=== PATIENT | male | born 1945 | race Caucasian/White ===

== ENCOUNTER 2018-07-08 10:02 | Outpatient (RCR) | payer MEDICARE, SELFPAY ==
--- NOTE | 2018-07-08 11:21 | IE_ITS ---
Date: 07/08/18 Referring: JINNY Lilly Primary: Yuli Gallardo NP M.D. Diagnosis: s/p CVA P.T. Diagnosis: resolved symptoms of weakness s/p CVA SUBJECTIVE: History of Present Illness: Carmelo presents to the clinic for evaluation after an acute care stay, where he states he was diagnosed with either a CVA or a TIA. He states that he was at work last week when he became unable to talk or walk. He immediately contacted his boss, who recommended he go to the ER. Carmelo was then admitted to [facility] for acute management and further work up. He states that he continued to have difficulty walking in the hospital, and he attributes much of that to the amount of time he spent in bed. He states that he went home with a walker after 3 days in the hospital, and once home was able to gradually wean away from use of the WW. He is now walking independently, and states that his feeling of weakness has resolved. Pain Ratin/10 Prior Level of Function: Active and independent. 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 States that he's on his feet all day. Current Level of Function: Continues to be out of work since his hospitalization. He is hopeful he can return this week after following up with his PCP tomorrow. He denies any difficulty walking or caring for himself. Previous Treatment: Acute care stay at [facility] 06/28-07/01/18 Comorbidities: recent TIA with h/o CVA; hyperlipidemia; bipolar disorder Falls in the last year: __x__ No ____Yes - How many? ____ - (if over 2, balance SM needs to be completed) Reported hospitalizations in the last year - ____ No __x__ Yes - Dates of admission/reason: as above Medications: reviewed from EMR Quality of Life: __x__ Excellent ____ Good ____ Fair ____ Poor OBJECTIVE: Posture: Patient has forward flexed trunk posturing. He has marked genu valgus right >left, with significant valgus deformity of the right knee. He has marked deformity of the foot and ankle bilat, with removal of 2nd digit of the right foot. He has a wound over the left navicular, as well as skin breakdown noted on the medial portion of the 2nd digit of the left foot. Gait: (+) antalgia, with right hip IR during stance phase of the RLE. He has bilat toeing out and increasing trunk flexion with ambulation. ROM: Shoulder flexion allows 150 degrees bilat. Otherwise grossly WNL for the UEs. Strength: Shoulder flexion 3+/5 right, 4/5 left; biceps 4/5 bilat; shoulder IR 4/5 bilat; ER 4/5 bilat. Philosophy Lecturer by dynomometer shows right side: 70#, 65#, 60#; left side 75#, 68#, 58#. Hip flexion is 5/5 bilat; quads 5/5 bilat with significant crepitus on the right ; HS 4/5 bilat. Neuro: dermatomes and myotomes WNL. DTRs were not assessed Treatment: Today's session consisted of evaluation, with long discussion regarding appropriate treatment planning and goals. Patient is comfortable transitioning back to work and has no complaints about strength or mobility, both of which he feels are back to baseline. IE: [id number] Direct treatment time: 35 minutes Total treatment time: 35 mintues ASSESSMENT: Patient is a 73-year-old male, referred for PT services with the diagnosis of s/ p CVA. Patient presents with clinical signs and symptoms consistent with resolving symptoms of TIA. On evaluation today, patient demonstrates baseline biomechanical deficits, for which he sees Dr. Herrera regularly. He is also demonstrating some mild strength deficits, although mobility appears to be at baseline, with patient denying any mobility concerns at this point. Patient is anxious to resume work duties, which is safe for him to do, provided he's cleared by his PCP. No further PT intervention is warranted at this time. Patient is assessed as: __x__ Low 70989 ____ Moderate 80003 ____ High 78709 complexity, based on the following: History: (list): 73 year old male with resolving mobility issues related to recent TIA. x See comorbidities and social history. Examination: (list): Denies functional limitations Presentation: x Stable . Evolving Unstable Decision-Making: x Low complexity [] Moderate complexity [] High complexity __x__ Patient does not require skilled PT intervention. G-Codes (fill in modifier after appropriate code): Patient's primary functional limitation is in the category of: __x__ Mobility - walking and moving around : [id number] Projected goal: __x__ Mobility - walking and moving around: [id number] Discharge status: --x-- Mobility: walking and moving around: [id number] PLAN: No PT intervention required at this time as patient is at baseline level of function. Thank you for this referral. Please do not hesitate to contact me with any questions or concerns regarding this patient's plan of care.
== END 2018-07-19 23:59 | disposition home or self-care (01) ==
LOC: PT 10:02
PROVIDERS: PCP Nurse Practitioner; Referring Provider Nurse Practitioner Primary Care; Visit Provider Nurse Practitioner Primary Care
DX: I69.393 Ataxia following cerebral infarction (principal)
CPT/HCPCS: 97161; G8978

== ENCOUNTER → 2018-07-09 13:29 | Outpatient (CLI) | payer MEDICARE, SELFPAY ==
--- NOTE | 2018-07-12 13:43 | ZIOP_ITS ---
DATE OF DICTATION: July 12, 2018 INDICATION: TIA MONITORING PERIOD: Four days and five hours. Predominant underlying rhythm is sinus rhythm with first-degree AV block. Average heart rate is 83 bpm, maximum heart rate 161 bpm, minimum heart rate 43 bpm. One run of SVT lasting eleven beats with a maximum heart rate of 120 bpm. Three episodes of second-degree AV block Mobitz Type 1 occurred nocturnally. No significant advanced heart block otherwise. No significant pauses. No non-sustained VT. Rare isolated atrial ectopy. Rare isolated ventricular ectopy. No diary entries. Two patient-triggered events correspond to sinus rhythm. Overall sinus rhythm with no significant arrhythmias.
--- NOTE | 2018-08-02 10:13 | ZIOP_ITS ---
ZIO PATCH EVENT RECORDER STUDY DATE OF ANALYSIS/DICTATION August 01, 2018 DATE OF ENROLLMENT July 09, 2018 until July 18, 2018 INDICATION Transient cerebral ischemic attack. PRESCRIBING PHYSICIAN Yuli Gallardo NP FINDINGS 1. Baseline sinus rhythm, heart rate spectrum 42-145 beats per minute, average 81 beats per minute. 2. Rare PACs, less than 1%, 3 SVT runs, fastest 4 beats at 184 beats per minute , longest 10.7 seconds with an average rate of 133 beats per minute. No atrial fibrillation. 3. Rare PVCs, less than 1%, occasional couplets, occasional ventricular bigeminy and trigeminy. No ventricular tachycardia. 4. No significant pauses. 5. Two triggered events both with sinus rhythm, 99 and 110 beats per minute, single PVCs. 6. No symptoms recorded. Mica Blackwell M.D. ROBERT/santy T - 08/02/2018
== END ==
PROVIDERS: PCP Nurse Practitioner; Visit Provider Nurse Practitioner
DX: G45.9 Transient cerebral ischemic attack, unspecified (principal); I44.0 Atrioventricular block, first degree; I44.1 Atrioventricular block, second degree; I47.1 Supraventricular tachycardia
CPT/HCPCS: 0296T; 93225

== ENCOUNTER → 2018-07-12 09:00 | Outpatient (CLI) | payer MEDICARE, SELFPAY | PROVIDERS: PCP Nurse Practitioner; Visit Provider Internal Medicine Cardiovascular Disease | DX: G45.9 Transient cerebral ischemic attack, unspecified (principal); I11.0 Hypertensive heart disease with heart failure; I44.1 Atrioventricular block, second degree; I47.1 Supraventricular tachycardia | CPT/HCPCS: 0298T ==

== ENCOUNTER 2018-08-01 18:18 | Outpatient (CLI) | payer MEDICARE, SELFPAY | END 2018-08-01 18:38 | PROVIDERS: PCP Nurse Practitioner; Visit Provider Internal Medicine Cardiovascular Disease | DX: G45.9 Transient cerebral ischemic attack, unspecified (principal); I44.0 Atrioventricular block, first degree; I44.1 Atrioventricular block, second degree; I47.1 Supraventricular tachycardia | CPT/HCPCS: 0298T ==

== ENCOUNTER → 2018-08-13 10:10 | Outpatient (BNVA) | payer MEDICARE, SELFPAY | PROVIDERS: Visit Provider Psychiatry & Neurology Neurology | DX: I44.1 Atrioventricular block, second degree (principal); G21.11 Neuroleptic induced parkinsonism; T43.595A Adverse effect of other antipsychotics and neuroleptics, initial encounter | CPT/HCPCS: 99205; 99215 ==

== ENCOUNTER 2018-09-26 19:33 | Outpatient (REF) | payer MEDICARE, SELFPAY | END 2018-09-26 19:53 | LOC: LBN 19:33 | PROVIDERS: PCP Nurse Practitioner; Visit Provider Nurse Practitioner | DX: M54.9 Dorsalgia, unspecified (principal); R82.90 Unspecified abnormal findings in urine | CPT/HCPCS: 87077; 87086 ==

== ENCOUNTER 2018-09-27 10:49 | Emergency (ER) | payer MEDICARE, SELFPAY ==
[2018-09-27] VITALS (34 sets, daily range): BP systolic 106–155; BP diastolic 62–81; PULSE 87–123; RESP 15–57; TEMP 38.8–39.1; O2SAT 96–100
--- NOTE | 2018-09-27 10:43 | W.ED.GENAD ---
Discharge Plan Disposition Patient Disposition: HOME Condition: Stable Discharge Details Chief Complaint: AMS/LOC Clinical Impression: Community acquired pneumonia Reason For Visit: KANWAL Primary Care Provider: Yuli Gallardo ED Provider: Ambrocio Medina Home Meds and New Rx's Prescriptions: No Action aspirin 81 mg tablet,chewable 81 mg PO DAILY Qty: 90 RF: 3 methylprednisolone [Medrol (Charles)] 4 mg tablets,dose pack See Label Instructions .Route .COMPLEX Qty: 21 RF: 0 olanzapine 10 MG tablet 10 mg PO DAILY RF: 0 acetaminophen [Acetaminophen Extra Strength] 500 MG tablet 500 mg PO DAILY PRNRF: 0 PEPTO-BISMOL 262 MG/15 ML ORAL.SUSP 2 tsp PO PRN PRNRF: 0 lithium carbonate 300 MG capsule 900 mg PO DAILY RF: 0 atorvastatin [Lipitor] 40 MG tablet 40 mg PO QPM Qty: 90 RF: 3 trazodone 100 MG tablet 100 mg PO HS Qty: 90 RF: 3 cane 1 EACH device 1 ea Miscellaneous DAILY Qty: 1 RF: 0 Medical Decision Making 72 yo male comes in with altered mental status. Per chart review he is caox4 normally and saw his pcp yesterday for back pain and was felt to be due to muscle pain so put on prednisone. He hasn't been seen since yesterday and didn't show up for work today and so his boss called pd for a wellfare check and he was found in bed and altered so ems brought him here. Is noted to be febrile here, pt can't provide any meaninful history, only says okay to all questions. IS moving all extremities without problems. Has right sided abdominal tenderness over the oblique area. Will obtain head ct given his ams, chest xray to eval for pna and given his abd pain ct to eval for cholecystitis among other pathology and UA to eval for uti pt remains stable, labs shows wbc of 17 otherise unremarkable. Pt's xray on my read shows left sided lower lobe infiltrate. Given his ams and fevers will admit for IV abx, our hospital is currently full so patient is being transferred to Dr. Barton at [facility]. Pt and sister updated Differential Diagnosis pna, pancreatitis, uti, HPI General Mode of arrival: EMS. Date/Time Provider Initiated Documentation: 09/27/18 13:15. Limitations to Documentation: altered mental status. Information obtained by: patient and EMS. History of Present Illness 72 year old M presents to the emergency department with the chief complaint of altered mental status, described as moderate, Patient started experiencing this unknown and it has been constant. Patient notes fever/chills. Patient did receive the following treatments prior to arrival, none Related Data Home Medications Medication Instructions Recorded Confirmed Pepto-Bismol 2 tsp PO PRN PRN 03/20/13 09/27/18 acetaminophen [Acetaminophen Extra 500 mg PO DAILY PRN 03/20/13 09/27/18 Strength] olanzapine 10 mg PO DAILY tab-cap 03/20/13 09/27/18 lithium carbonate 900 mg PO DAILY cap 08/05/15 09/27/18 atorvastatin [Lipitor] 40 mg PO QPM #90 tab 07/09/18 09/27/18 cane #1 ea 07/09/18 09/26/18 trazodone 100 mg PO HS #90 tab-cap 18 09/27/18 aspirin 81 mg chewable tablet 81 mg PO DAILY #90 tab 08/15/18 09/27/18 methylprednisolone 4 mg tablets in See Label Instructions .ROUTE 09/26/18 09/27/18 a dose pack .COMPLEX #21 dose pk Previous Rx's Medication Instructions Recorded atorvastatin [Lipitor] 40 mg PO QPM #90 tab 07/09/18 cane #1 ea 07/09/18 trazodone 100 mg PO HS #90 tab-cap 07/09/18 aspirin 81 mg chewable tablet 81 mg PO DAILY #90 tab 08/15/18 methylprednisolone 4 mg tablets in See Label Instructions .ROUTE 09/26/18 a dose pack .COMPLEX #21 dose pk Allergies Allergy/AdvReac Type Severity Reaction Status Date / Time No Known Allergies Allergy Verified 09/26/18 10:40 General Stated Complaint: AMS/LOC RYLAN: 2 Review of Systems Review of Systems Unobtainable due to mental status [facility] Family History Mother No problems noted. Father No problems noted. 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) Impaired fasting glucose (Chronic 04/16/13) Erectile dysfunction (Chronic 02/21/18) BPH w/o urinary obs/LUTS (Chronic 03/12/12) Bipolar disorder (Chronic) Hyperlipidemia (Chronic) Bipolar disorder (Resolved) DVT prophylaxis (Resolved) Dehydration (Resolved) HLD (hyperlipidemia) (Resolved) Social History household members: family number of children: 1 current occupational status: employed current occupation: [employer] Smoking/Tobacco Use Status: Former Tobacco Use alcohol intake: never substance use type: does not use seatbelt use: always water heater temp set < 120 deg: Yes working smoke detector in home: Yes fire extinguisher in home: Yes additional social history: His son lives in [place]. 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 He lives alone. Sibs help with care. He continues to drive. Surgical History S/P right cataract extraction (Acute) S/P wrist surgery (Acute) Hx of appendectomy (Chronic) Colonoscopy - IV Sedation (~2012) R popliteal artery stentgrafting/angioplasty (03/16/17) Repair of inguinal hernia (09/16/14) Exam Const General: no acute distress Orientation: alert [facility] Head: normal to inspection Ears: external ears normal General nose exam: external nose normal Mouth: moist mucous membranes Eyes General: appearance normal, both eyes and all related structures Neck Neck: normal visual inspection Resp Effort & Inspection: normal respiratory effort and able to speak in complete sentences Cardio Rate: regular rate Neuro General: alert Extrem General: normal to inspection Course Vital Signs Temperature 38.8 C H 09/27/18 10:17 Pulse 100 H 09/27/18 10:17 Respiratory Rate 24 09/27/18 10:17 Blood Pressure 133/65 09/27/18 10:17 Pulse Oximetry 100 09/27/18 10:17 Temperature 38.8 C H 09/27/18 10:17 Temperature Source Skin 09/27/18 10:17 Pulse 100 H 09/27/18 10:17 Respiratory Rate 24 09/27/18 10:17 Blood Pressure 133/65 09/27/18 10:17 Pulse Oximetry 100 09/27/18 10:17 Oxygen Delivery Method Room Air 09/27/18 10:17 Oxygen Flow Rate 0 09/27/18 10:17 Lab/Test Results Lab/Test Results: 09/27/18 10:25 Blood Blood Culture - Pending 09/27/18 10:25 Blood Blood Culture - Pending
--- NOTE | 2018-09-27 10:44 | DI.RAD_ITS ---
SYMPTOM/DIAGNOSIS: FEVER AP AND LATERAL CHEST: Comparison is made with 06/28/18. There is a poor inspiration. Cardiac silhouette is at the upper limits of normal. Pulmonary vasculature is within normal limits. There is atelectasis seen in the left lung base. No focal consolidating infiltrates, effusions or pneumothoraces are identified. Degenerative changes are seen in the spine. IMPRESSION: No acute pulmonary process.
[2018-09-27] MEDS: Normal Saline 1,000 ML 1000 ML IV (10:49)
[2018-09-27 11:01] LABS: Abs Immature Grans 0.07 k/cumm (0.0-0.09); Absolute Lymphocyte Count 0.15 k/cumm (1.2-3.4); Absolute Neutrophil Count 15.08 k/cumm (1.2-6.7); Basophils % 0.1; HCT 36.4 % (40.0-50.0); HGB 12.1 g/dL (13.5-17.5); Immature Grans % 0.4; Lymphocytes % 0.9; Mean Corp. HGB Concentration 33.2 g/dL (32.0-36.0); Mean Corpuscular Hemoglobin 33.2 pg (27.0-33.0); Mean Corpuscular Volume 99.7 fL (80-95); Mean Platelet Volume 10.4 fL (8.0-11.0); Monocytes % 7.9; Neutrophils % 90.7; Platelet Count 145 x1000/uL (130-400); RBC 3.65 m/cumm (4.50-6.00); RBC Distribution Width 13.7 % (11.8-14.1); White Blood Cell Count 16.63 k/cumm (4.4-10.8)
[2018-09-27 11:02] LABS: Absolute Basophil Count 0.02 k/cumm (0.0-0.2); Absolute Monocyte Count 1.31 k/cumm (0.11-0.7); Lactate-non-spesis 1.1 mmol/L (0.6-1.4)
[2018-09-27 11:09] LABS: Ammonia 12 umol/L (11-32)
[2018-09-27 11:12] LABS: PTT Activated 25.3 sec (21.0-31.4); Prothrombin Time 9.6 sec (9.3-10.8)
[2018-09-27 11:14] LABS: Bilirubin Negative (Negative); Blood Trace-lysed (Negative); Clarity Clear; Glucose Negative (Negative); Ketones Negative (Negative); Leukocyte Esterase Negative (Negative); Nitrite Negative (Negative); Specific Gravity 1.015 (1.005-1.025); Urobilinogen 0.2 EU/dL (Up TO 0.2); pH 5.5 (5-8)
[2018-09-27 11:22] LABS: ALT 17 U/L (12-78); AST 11 U/L (15-37); Albumin 3.3 g/dL (3.4-5.0); Alkaline Phosphatase 75 U/L (46-116); Anion Gap 11.3 mmol/L (3-11); BUN 28 mg/dL (7-18); Bilirubin, Direct 0.13 mg/dL (0.00-0.20); Bilirubin, Total 0.5 mg/dL (0.2-1.0); CO2 23.7 mmol/L (21.0-32.0); CREATININE 1.21 mg/dL (0.70-1.30); Calcium 9.1 mg/dL (8.5-10.1); Chloride 102 mmol/L (98-107); Estimated GFR 59.12 (mL/min/1.73m2); Glucose 159 mg/dL (70-100); Lipase 49 U/L (73-393); Potassium 4.6 mmol/L (3.5-5.1); Sodium 137 mmol/L (136-145); TSH (W/Ref FT4) 0.22 uIU/mL (0.358-3.74); Total Protein 7.9 g/dL (6.4-8.2)
[2018-09-27 11:25] LABS: Epithelial Cells Negative HPF (Negative); WBC 0-2 HPF (0-5)
[2018-09-27 11:26] LABS: *AMPHETAMINES SCREEN URINE Negative (Negative); *BARBITURATES SCREEN URINE Negative (Negative); *BENZODIAZEPINES SCREEN URINE Negative (Negative); Bacteria Negative HPF (Negative); C & S Indicated? No; Cannabinoids THC Negative (Negative); Casts 0-2 Coarse Granular LPF (Negative); Cocaine Screen,Urine Negative (Negative); Crystals Negative HPF (Negative); METHADONE URINE SCREEN Negative (Negative); Mucus Moderate (Negative); OPIATES URINE SCREEN Negative (Negative)
--- NOTE | 2018-09-27 11:31 | NUR.NOTE ---
In addition to assessment, pupils are PERRLA, pt. does follow commands. Awaiting CT and xray.
[2018-09-27 11:37] LABS: Tricyclic Antidepressants Negative (Negative)
[2018-09-27 11:39] LABS: Salicylate < 2.8 mg/dL (2.8-20.0)
[2018-09-27 11:42] LABS: Acetaminophen < 2 ug/mL (10-30)
[2018-09-27 11:44] LABS: ETHANOL BLOOD < 3.0 mg/dL (<3); FREE T4 1.09 ng/dL (0.76-1.46)
--- NOTE | 2018-09-27 12:08 | DI.CT_ITS ---
SYMPTOM/DIAGNOSIS: ALTERED MENTAL STATUS NONCONTRAST HEAD CT: Comparison is made with 06/28/18. There is cerebral atrophy and small vessel ischemic disease. No acute infarct, hemorrhage, midline shift or mass effect is identified. The visualized paranasal sinuses are clear. Mastoid air cells are well pneumatized. Calvarium is intact. IMPRESSION: No acute intracranial process. The findings were discussed with the ER on the date of the examination. ABDOMEN AND PELVIC CT: CT scan of the abdomen and pelvis was performed according to protocol. There is patient motion artifact. There are areas of atelectasis seen in the lung bases. The liver is normal in size. No hepatic mass is seen. On (series 5, image 29), there does appear to be a small stone in the gallbladder. No biliary ductal dilatation is present. The pancreas, spleen and adrenal glands are unremarkable. There are bilateral renal cysts, the largest is seen in the left kidney and measures 7.7 cm. in diameter. No solid renal mass or obstruction is seen. The urinary bladder is intact. The reproductive organs are unremarkable. The abdominal aorta is of normal caliber. No significant abdominal or pelvic adenopathy, ascites or pneumoperitoneum is seen. The bowel shows no evidence of obstruction or inflammation. No findings to suggest an acute appendicitis are present. Degenerative changes are present throughout the spine. Central spinal canal stenosis is seen at L 3-4 and L 4-5 and L 5-S1. IMPRESSION: 1. No evidence of an acute abdomen. 2. Possible gallstone. No biliary ductal dilatation. 3. Renal cysts. 4. Degenerative changes in the lumbar spine.
[2018-09-27] MEDS: Omnipaque 350 MG/ML 100 ML BTL IJ (12:32)
--- NOTE | 2018-09-27 13:40 | NUR.NOTE ---
Pt. continues to be confused, cleansed of incontinence. abx running as ordered. supportive family is at the bedside.
[2018-09-27] MEDS: Acetaminophen 500 MG TAB 1000 MG PO (14:03)
[2018-09-27] MEDS: AZITHROMYCIN 500 MG in Normal Saline 250 ML 250 MG IVPB (14:08)
--- NOTE | 2018-09-27 14:43 | NUR.NOTE ---
Pt. is in NAD, VSS on the monitor. Drinking apple juice with assistance from sister. Awaiting transfer.
[2018-09-27 14:46] LABS: Lithium 0.33 mmol/L (0.60-1.20)
== END 2018-09-27 16:16 | disposition home or self-care (01) ==
PROVIDERS: Emergency Provider Emergency Medicine; PCP Nurse Practitioner
DX: J18.9 Pneumonia, unspecified organism (principal); R41.82 Altered mental status, unspecified; R10.11 Right upper quadrant pain; G21.11 Neuroleptic induced parkinsonism; R73.01 Impaired fasting glucose
CPT/HCPCS: 36415; 80053; 80076; 80307; 83690; 87040; 87077; 87449; 96361; 96365; 96367; 99285; 70450; 71046; 74177; 80178; 80320; 80329; 81003; 81015; 82140; 83605; 83735; 84439; 84443; 85025; 85610; 85730; 87186; J0456; J3490

== ENCOUNTER 2024-08-05 22:19 | Outpatient (REF) | payer MEDICARE, MEDICAID, SELFPAY ==
[2024-08-05 16:16] LABS: HCT 38.7 % (40.0-50.0); MCH 31.2 pg (27.0-33.0); MCHC 33.6 % (32.0-36.0); MCV 93 fL (80-95); MPV 12.3 fL (8.0-11.0); Platelet Count 130 10^3/uL (130-400); RBC 4.17 10^6/uL (4.36-5.78); RDW 13.5 % (11.8-14.1); RDW-SD 46.5 fL; WBC 4.43 10^3/uL (4.4-10.8)
[2024-08-05 16:27] LABS: Anion Gap 8.4 mmol/L (3-11); BUN 24 mg/dL (7-18); CO2 25.6 mmol/L (21.0-32.0); CREATININE 1.2 mg/dL (0.70-1.30); Calcium 9.6 mg/dL (8.5-10.1); Chloride 105 mmol/L (98-107); Estimated GFR 62.29 (mL/min/1.73m2); Glucose 122 mg/dL (74-106); Potassium 3.9 mmol/L (3.5-5.1); Sodium 139 mmol/L (136-145)
== END 2024-08-05 22:20 | disposition home or self-care (01) ==
LOC: LBN 22:19
PROVIDERS: Visit Provider Family Medicine
DX: R68.89 Other general symptoms and signs (principal)
CPT/HCPCS: 80048; 85027

== ENCOUNTER 2024-08-31 23:41 | Emergency (ER) | payer MEDICARE, MEDICAID, SELFPAY ==
[2024-08-31 23:59] VITALS: BP 99/62; PULSE 78; RESP 22; TEMP 37.1; O2SAT 97
[2024-09-01] VITALS (51 sets, daily range): BP systolic 98–108; BP diastolic 55–64; PULSE 54–59; RESP 16; TEMP 36.7; O2SAT 96–99
--- NOTE | 2024-09-01 01:24 | ED.GENADUL_ITS ---
Discharge Plan Disposition Patient Disposition: Home Condition: Good Discharge Details Clinical Impression: Fall, Head injury Primary Care Provider: Unknown,Unknown ED Provider: Lona Meehan Home Meds and New Rx's Prescriptions: Continued acetaminophen [Acetaminophen Extra Strength] 500 mg tablet 500 mg PO Q6H PRN (Reason: fever or pain) Qty: 30 0RF (DME) cane 1 EACH device 1 ea Miscellaneous DAILY Qty: 1 0RF aspirin 81 mg tablet,chewable 81 mg PO DAILY Qty: 90 0RF capsaicin 0.025 % cream 1 applic TP QID PRN (Reason: to right knee) Qty: 60 0RF carbidopa-levodopa 25-100 mg tablet 1 tab PO TID Qty: 90 0RF finasteride 5 mg tablet 5 mg PO DAILY Qty: 90 0RF mirtazapine 7.5 mg tablet 7.5 mg PO DAILY Qty: 90 0RF alendronate 70 mg tablet 70 mg PO .weekly donepezil 10 mg tablet 10 mg PO DAILY pantoprazole 20 mg tablet,delayed release (DR/EC) 20 mg PO DAILY trazodone 100 mg tablet 100 mg PO QHS olanzapine 7.5 mg tablet 7.5 mg PO DAILY olanzapine 5 mg tablet 5 mg PO DAILY memantine 10 mg tablet 10 mg PO BID simvastatin 20 mg tablet 10 mg PO QPM Discharge Instructions Instructions: Minor Head Injury, Adult ED, Preventing Falls ED Additional Instructions: Call your primary care doctor today to schedule an appointment for within the next 3 days to followup on your visit here. At that visit please discuss your fall and whether you should change any of your medications to help prevent further falls. Return to the emergency department for new or worsening symptoms. HPI General Mode of arrival: EMS . Date/Time Provider Initiated Documentation: 08/31/24 23:53 . Limitations to Documentation: no limitations . Information obtained by: patient and EMS . HPI Narrative: 78yo M with hx Parkinsonism, bipolar, presenting via EMS from assisted living facility after a reported unwitnessed fall (presumed from standing). Had skin tears to left restorationist and bridge of nose which were cleaned prior to arrival and closed with steri strips. Patient is reportedly acting at his baseline. He reports mild headache, otherwise denies pain or injury. States he fell and struck his head, does not think he lost consciousness. No nausea, vomiting, numbness, tingling, weakness, or vertigo. No chest pain, shortness of breath, or lightheadedness. No abdominal pain. Otherwise in his usual state of health. Related Data Home Medications ?Medication ?Instructions ?Recorded ?Confirmed cane #1 jak 07/09/18 01/06/19 acetaminophen 500 mg tablet 500 mg PO Q6H PRN fever or pain 01/06/19 09/01/24 (Acetaminophen Extra Strength) #30 tabs aspirin 81 mg chewable tablet 81 mg PO DAILY #90 tabs 02/17/19 09/01/24 capsaicin 0.025 % topical cream 1 applic topical QID PRN to right 02/17/19 09/01/24 knee #60 grams carbidopa 25 mg-levodopa 100 mg 1 tab PO TID #90 tabs 02/17/19 09/01/24 tablet finasteride 5 mg tablet 5 mg PO DAILY #90 tabs 02/17/19 09/01/24 mirtazapine 7.5 mg tablet 7.5 mg PO DAILY #90 tabs 02/17/19 09/01/24 alendronate 70 mg tablet 70 mg PO .weekly 09/01/24 09/01/24 donepezil 10 mg tablet 10 mg PO DAILY 09/01/24 09/01/24 memantine 10 mg tablet 10 mg PO BID 09/01/24 09/01/24 olanzapine 5 mg tablet 5 mg PO DAILY 09/01/24 09/01/24 olanzapine 7.5 mg tablet 7.5 mg PO DAILY 09/01/24 09/01/24 pantoprazole 20 mg tablet,delayed 20 mg PO DAILY 09/01/24 09/01/24 release simvastatin 20 mg tablet 10 mg PO QPM 09/01/24 09/01/24 trazodone 100 mg tablet 100 mg PO QHS 09/01/24 09/01/24 Previous Rx's ?Medication ?Instructions ?Recorded cane #1 jak 07/09/18 acetaminophen 500 mg tablet 500 mg PO Q6H PRN fever or pain 01/06/19 (Acetaminophen Extra Strength) #30 tabs aspirin 81 mg chewable tablet 81 mg PO DAILY #90 tabs 02/17/19 capsaicin 0.025 % topical cream 1 applic topical QID PRN to right 02/17/19 knee #60 grams carbidopa 25 mg-levodopa 100 mg 1 tab PO TID #90 tabs 02/17/19 tablet finasteride 5 mg tablet 5 mg PO DAILY #90 tabs 02/17/19 mirtazapine 7.5 mg tablet 7.5 mg PO DAILY #90 tabs 02/17/19 Allergies Allergy/AdvReac Type Severity Reaction Status Date / Time No Known Allergies Allergy Verified 09/01/24 00:13 General Stated Complaint: Fall/Non TraumaCriteria RYLAN: 3 Review of Systems Narrative: see HPI Exam Narrative Exam Narrative: GENERAL: Alert, no acute distress. Good muscle bulk. SKIN: Warm and well perfused. HEAD: Lacs/skin tears to left restorationist and bridge of nose approximated wtih steri-strips, edges well approximated, no bleeding. Facial bones without deformities or tenderness. EYES: PERRL. No scleral icterus or conjunctival injection. Extraocular muscles intact without nystagmus or diplopia. No proptosis or enophthalmos. NOSE: No discharge, tenderness, laxity. No nasal septal hematoma. MOUTH: No malocclusion or trismus. Moist mucus membranes without blood. NECK: Trachea midline. No discolorations or edema. CV: Regular rate and rhythm, Normal s1 and s2. No murmurs, rubs, or gallops. PV: Radial pulses 2+ bilaterally and symmetric. Dorsalis pedis pulses 2+ bilaterally and symmetric. 2+ capillary refill. No extremity edema. CHEST: No abrasions or ecchymosis. Chest symmetric with respirations. No chest wall tenderness. Lungs are clear to auscultation bilaterally. ABDOMEN: No ecchymosis or abrasions. Soft, nondistended, nontender. BACK: No abrasions, skin openings, or ecchymosis. Spine without bony tenderness, no step offs. PELVIC: Pelvis stable, nontender to lateral compression and palpation of symphysis pubis. : Normal external genitalia without blood at meatus. No ecchymosis or edema. MSK: No gross deformities or discolorations or lesions. Tolerates full range of motion of extremities without tenderness. NERUO: ? GCS 15.? PERRL.? EOMI.? Fluent speech, no dysarthria. Motor- 5/5 strength symmetric bilateral upper and lower extremities Sensation- ?Intact to light touch and symmetric multiple dermatomes including upper and lower extremities Coordination- No dysmetria on finger to nose Gait/station: ?Normal stance.? No truncal ataxia. Steady gait with equal normal steps CRANIAL NERVES: II: Pupils equal and reactive, III, IV, : EOM intact, no gaze preference or deviation, no nystagmus. V: normal sensation in V1, V2, and V3 segments bilaterally VII: no asymmetry, no nasolabial fold flattening VIII: LA POSTA IX, X: normal palatal elevation, no uvular deviation XI: 5/5 head turn and 5/5 shoulder shrug bilaterally XII: midline tongue protrusion Course Vital Signs Vital signs: Vital Signs Temperature 37.1 C 08/31/24 23:59 Pulse 78 08/31/24 23:59 Respiratory Rate 22 08/31/24 23:59 Blood Pressure 99/62 L 08/31/24 23:59 Pulse Oximetry 97 08/31/24 23:59 Temperature 37.1 C 08/31/24 23:59 Temperature Source Temporal Artery Scan 08/31/24 23:59 Pulse 78 08/31/24 23:59 Respiratory Rate 22 08/31/24 23:59 Respiratory Effort Normal, Non-Labored 09/01/24 00:09 Blood Pressure 99/62 L 08/31/24 23:59 Blood Pressure Position Sitting 08/31/24 23:59 Pulse Oximetry 97 08/31/24 23:59 Oxygen Delivery Method Room Air 08/31/24 23:59 Oxygen Flow Rate 0 08/31/24 23:59 Pain Level 4 09/01/24 00:09 Medical Decision Making 78yo M with hx Parkinsonism, bipolar, presenting via EMS from assisted living facility after a reported unwitnessed fall (presumed from standing). Pt reports mild headache, otherwise denies pain or injury. EMS reports his mental status is at his baseline per the facility he comes from. Vital signs and physical exam reassuring, pt with good muscle bulk and does not appear frail. Steri- strips in place to left restorationist and bridge of nose, otherwise no traumatic findings on exam. Non-focal neurologic exam. Pt is on ASA. Out of abundance of caution will get CT head non con to evaluate for bleed. Would not get labs or other imaging as his physical exam is extremely reassuring and he denies any pain elsewhere. CT head independently reviewed; no intracranial bleed or mass on my view, radiology read below. On reassessment he remains well appearing. Denies pain. Ambulated with steady gait. Discharged back to assisted living; discharge instructions and return precautions were reviewed with patient who verbalized understanding and copy of instructions sent to facility. All questions were answered and he is in full agreement with the plan. Imaging Data Radiologic Study: Imaging: CT Scan Radiologist's impression: IMPRESSION: No acute brain findings Quality:SDOH Health Related Social Needs: No Data to Display PFSH All Active Problems (Updated 09/01/24 @ 03:12 by Lona Meehan MD) Head injury (Acute) Fall (Acute) Prophylactic antibiotic (Chronic 11/29/18) PVD (peripheral vascular disease) (Chronic) Per Leonarda Ingram MD [facility] [place] [facility] [place] Status post incision and drainage (Chronic 10/08/18) left ankle ([place]) Epidural abscess (Acute) Bacteremia due to methicillin resistant Staphylococcus aureus (Chronic) Mobitz type 1 second degree AV block (Acute) Neuroleptic-induced Parkinsonism (Chronic) Inguinal hernia (Chronic) Tubular adenoma of colon (Chronic 03/12/12) colonoscopy 2004 Dr Rodriguez: tubular adenoma colonoscopy 09/01/13 DSA, hyperplastic polyp Primary osteoarthritis of both knees (Chronic 08/17/16) 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; 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 Impaired fasting glucose (Chronic 04/16/13) Erectile dysfunction (Chronic 02/21/18) BPH w/o urinary obs/LUTS (Chronic 03/12/12) Bipolar disorder (Chronic) Hyperlipidemia (Chronic) Medical History (Updated 09/01/24 @ 03:12 by Lona Meehan MD) Bipolar disorder HLD (hyperlipidemia) DVT prophylaxis Dehydration Surgical History (Updated 12/25/18 @ 11:45 by Colleen Galdamez RN) S/P wrist surgery S/P right cataract extraction Hx of appendectomy R popliteal artery stentgrafting/angioplasty (03/16/17) Repair of inguinal hernia (09/16/14) Dr Pierce open repair w/mesh Colonoscopy - IV Sedation (~2012) due in 5 years Minesh Patel h/o tubular adenoma in 2004 Family History Mother No problems noted. Father No problems noted. Social History Smoking/Tobacco Use Status: Former Tobacco Use Smoking risk assessment performed?: Yes Alcohol Intake: never Drug use: Never Substance use type: does not use Household members: family Housing: assisted living facility Number of Children: 1 current occupation: [employer] Seatbelt use: always Water heater temp set <120 deg: Yes Working smoke detector in home: Yes Fire extinguisher in home: Yes Do you feel safe at home: Yes Do you feel safe in your relationship?: Yes
--- NOTE | 2024-09-01 03:08 | DI.VRAD_ITS ---
PROCEDURE INFORMATION: Exam: CT Head Without Contrast Exam date and time: 09/01/2024 1:15 AM Age: 78 years old Clinical indication: Injury or trauma; Blunt trauma (contusions or hematomas); Consciousness not specified; Injury date: 08/31/24; Injury details: Fall with head strike TECHNIQUE: Imaging protocol: Computed tomography of the head without contrast. Radiation optimization: All CT scans at this facility use at least one of these dose optimization techniques: automated exposure control; mA and/or kV adjustment per patient size (includes targeted exams where dose is matched to clinical indication); or iterative reconstruction. COMPARISON: CT HEAD WO 09/27/2018 12:03 PM FINDINGS: Brain: Minimal chronic small-vessel ischemic change. No brain edema. No intracranial hemorrhage. Mild generalized volume loss of the brain. Cerebral ventricles: No ventriculomegaly. Paranasal sinuses: Visualized sinuses are unremarkable. No fluid levels. Mastoid air cells: Unremarkable. Bones: Unremarkable. No acute fracture. Soft tissues: Unremarkable. IMPRESSION: No acute brain findings. Dictated and Authenticated by: Ritchie Cooney MD. Ordering:MARCUS Zamorano MD
--- NOTE | 2024-09-01 23:58 | DI.CT_ITS ---
Exam(s) CT HEAD WO EXAM: CT HEAD WO CLINICAL HISTORY: fall with head strike. TECHNIQUE: Imaging Protocol: Axial computed tomography images with coronal and sagittal reformatted images were created and reviewed COMPARISON: CT CT HEAD WO from 09/27/2018 FINDINGS: Ventricles and Extra axial spaces: Normal in size and morphology for the patient's age. Hemorrhage: None. Cerebral parenchyma: No acute territorial infarct. No acute mass effect. Midline shift: None. Brainstem/Cerebellum: Normal. Calvarium: Normal. Visualized Paranasal sinuses/Mastoids: Clear. Soft Tissues: Unremarkable. IMPRESSION: No acute intracranial process. RADIATION DOSE DELIVERED: 860.93mGy.cm Total DLP DATA REPOSITORY: All CT scans at this facility are submitted to the National Radiology Data Registry (NRDR) Dose Index Registry (DIR) with the [employer] (A[employer]). RADIATION OPTIMIZATION: All CT scans at this facility use at least one of these dose optimization te chniques: automated exposure control; mA and/or kV adjustment per patient size (includes targeted exa ms where dose is matched to clinical indication); or iterative reconstruction.
== END 2024-09-01 03:38 | disposition home or self-care (01) ==
PROVIDERS: Emergency Provider Student in an Organized Health Care Education/Training Program
DX: S00.31XA Abrasion of nose, initial encounter (principal); S00.81XA Abrasion of other part of head, initial encounter; W19.XXXA Unspecified fall, initial encounter; Y92.129 Unspecified place in nursing home as the place of occurrence of the external cause; R51.9 Headache, unspecified
CPT/HCPCS: 99284; 70450; 99283

== ENCOUNTER 2025-01-01 18:26 | Outpatient (REF) | payer MEDICARE, MEDICAID, SELFPAY ==
[2025-01-01 13:16] LABS: Abs Immature Grans 0.01 10^3/uL (0.0-0.06); Absolute Basophil Count 0.02 10^3/uL (0.0-0.2); Absolute Eosinophil Count 0.09 10^3/uL (0.0-0.7); Absolute Lymphocyte Count 0.58 10^3/uL (1.2-3.4); Absolute Monocyte Count 0.63 10^3/uL (0.1-0.8); Absolute Neutrophil Count 1.22 10^3/uL (1.2-6.7); Basophils % 0.8 %; Eosinophils % 3.5 %; HCT 30.9 % (40.0-50.0); HGB 10.4 g/dL (13.5-17.5); Immature Grans % 0.4 %; Lymphocytes % 22.7 %; MCHC 33.7 % (32.0-36.0); MCV 92 fL (80-95); Monocytes % 24.7 %; Neutrophils % 47.9 %; Platelet Count 109 10^3/uL (130-400); RBC 3.35 10^6/uL (4.36-5.78); RDW 14.4 % (11.8-14.1); RDW-SD 48.1 fL; WBC 2.55 10^3/uL (4.4-10.8)
[2025-01-01 13:23] LABS: BUN 29 mg/dL (7-18); CREATININE 1.3 mg/dL (0.70-1.30); Calcium 8.1 mg/dL (8.5-10.1); Chloride 107 mmol/L (98-107); Estimated GFR 56.23 (mL/min/1.73m2); Glucose 103 mg/dL (74-106); Potassium 3.8 mmol/L (3.5-5.1); Sodium 141 mmol/L (136-145)
== END 2025-01-01 18:27 | disposition home or self-care (01) ==
LOC: LBN 18:26
PROVIDERS: Visit Provider Family Medicine Geriatric Medicine
DX: M62.81 Muscle weakness (generalized) (principal)
CPT/HCPCS: 80048; 85025

== ENCOUNTER 2025-01-14 17:21 | Outpatient (REF) | payer MEDICARE, MEDICAID, SELFPAY ==
[2025-01-14 17:48] LABS: Bilirubin Negative (Negative); Blood Negative (Negative); Clarity Clear (Clear); Glucose Negative (Negative); Ketones Negative (Negative); Leukocyte Esterase Negative (Negative); Nitrite Negative (Negative); Specific Gravity <= 1.005 (1.005-1.025); Urobilinogen 0.2 mg/dL (Up to 0.2)
== END 2025-01-14 17:22 | disposition home or self-care (01) ==
LOC: LBN 17:21
PROVIDERS: Visit Provider Family Medicine Geriatric Medicine
DX: R29.6 Repeated falls (principal)
CPT/HCPCS: 81003